=== PATIENT | male | born 1945 | race Caucasian/White ===

== ENCOUNTER 2017-01-05 09:23 | Inpatient (IN) | payer OTHER ==
[~2017-01-05] VITALS: Ht 177.8 cm; Wt 90.0 kg
[~2017-01-05 09:23] MED LIST: ASPIR 8181 M1 PO; ATORVASTATIN CA80 MG PO; CARVEDILOL25 MG PO; FORADIL AEROLI12 MCG IH; ISORDIL,SORBITR40 M3 PO; LOSARTAN POTAS100 MG PO; METFORMIN HCL500 MG PO; NITROGLYCERIN0.4 MG SL; PROVENTIL HFA6.7 GM IH; SPIRIVA RESPIMAT4 GM IH; ZOLPIDEM TARTRAT5 MG PO
[2017-01-05 10:05] LABS: EOSINOPHIL (%) 0 % (0-5); HEMATOCRIT 38.2 % (38.0-50.0); IMMATURE GRANULOCYTE (%) 0.7 % (0.0-0.7); IMMATURE GRANULOCYTE COUNT 0.1 K/uL; INSTRUMENT ABS NEUTROPHIL CT 10.5 K/uL; LYMPHOCYTE COUNT 0.5 K/uL (1.0-2.8); MCH 31.7 PG (29.0-34.0); MCHC 34.6 G/DL (30.0-36.0); MCV 91.6 FL (86-99); MEAN PLAT.VOLUME 9.6 uM^3 (9.0-12.4); MONOCYTE (%) 4.1 % (3-12); MONOCYTE COUNT 0.5 K/uL (0-0.8); NEUTROPHIL (%) 90.4 % (45-76); NEUTROPHIL COUNT 10.5 K/uL (1.8-6.4); PLATELET COUNT 143 K/uL (156-360); RBC DIS.WIDTH-CV 12.4 % (11.8-14.6); RED BLOOD COUNT 4.17 M/uL (4.00-5.50); WHITE BLOOD COUNT 11.6 K/uL (4.1-10.2)
[2017-01-05 10:07] LABS: INTER. NORMALIZED RATIO 4.1; PROTHROMBIN TIME 47.3 SEC (10.2-12.9)
[2017-01-05 10:10] LABS: PTT 42.7 SEC (25-37)
[2017-01-05 10:11] LABS: CHLORIDE 100 mEq/L (99-109); POTASSIUM 3.9 mEq/L (3.7-5.4); SODIUM 133 mEq/L (136-147)
[2017-01-05 10:12] LABS: GLUCOSE 175 mg/dL (70-99)
[2017-01-05 10:14] LABS: ANION GAP 9 MEQ/L (2-14)
[2017-01-05 10:16] LABS: GFR ESTIMATE (CALCULATED) > 59 mL/min/
[2017-01-05 10:17] LABS: UREA NITROGEN (BUN) 14 mg/dL (9-23)
[2017-01-05 10:31] LABS: TROP-I INTERPRETATION INDETERMINATE; TROPONIN-I 0.44 ng/mL (0.0-0.30)
[2017-01-05] MEDS ORDERED: LIPITOR80 MG PO (13:18)
[2017-01-05] MEDS ORDERED: SYMBICORT60 INHALAT IH (13:18)
[2017-01-05] MEDS ORDERED: DIGITEK125 MC2 PO (13:19)
[2017-01-05] MEDS ORDERED: PLAVIX75 MG PO (13:19)
[2017-01-05] MEDS ORDERED: METOPROLOL TART50 MG PO (13:20)
[2017-01-05] MEDS ORDERED: ONCE DAILY1 EACH PO (13:20)
[2017-01-05] MEDS ORDERED: LASIX40 MG PO (13:20)
[2017-01-05] MEDS ORDERED: B-1100 MG PO (13:21)
[2017-01-05] MEDS ORDERED: SPIRIVA18 MCG IH (13:21)
[2017-01-05] MEDS ORDERED: WARFARIN SODIUM5 MG PO (13:22)
[2017-01-05] MEDS ORDERED: COUMADIN5 MG PO (13:23)
[2017-01-05] MEDS ORDERED: GLUCOPHAGE500 MG PO (13:24)
[2017-01-05 14:28] LABS: HDL CHOLESTEROL 25 MG/DL (Desirable>=40); LDL CHOLESTEROL 38 mg/dL (Desirable<100); NON-HDL CHOLESTEROL 50 mg/dL (Desirable<160); SAMPLE HEMOLYSIS CHECK 0; SAMPLE ICTERIC CHECK 0; SAMPLE LIPEMIA CHECK 0; TOTAL CHOLESTEROL 75 mg/dL (Desirable<200); TRIGLYCERIDES 58 MG/DL (Normal: <150)
[2017-01-05 17:57] LABS: POINT-OF-CARE METER ID UU13113702
[2017-01-05 18:36] VITALS: BP 124/78
[2017-01-06 08:33] LABS: Estimated Average Glucose 143 mg/dL (70-123); HEMOGLOBIN A1c (GLYCOHEMOGLOB) 6.6 % HGB (Below 5.7)
== END 2017-01-05 15:52 | disposition short-term general hospital (02) | DRG 69 ==
LOC: EME 09:23 → EDOF 12:13 → ENRESERV 12:30 → CANRESERV 12:43 → EDOF 15:52
PROVIDERS: Emergency Medicine; Internal Medicine
DX: G45.8 Other transient cerebral ischemic attacks and related syndromes (principal); F05 Delirium due to known physiological condition; J90 Pleural effusion, not elsewhere classified; I25.10 Atherosclerotic heart disease of native coronary artery without angina pectoris; W06.XXXA Fall from bed, initial encounter; I10 Essential (primary) hypertension; I73.9 Peripheral vascular disease, unspecified; J44.9 Chronic obstructive pulmonary disease, unspecified; F17.210 Nicotine dependence, cigarettes, uncomplicated; E78.5 Hyperlipidemia, unspecified; E11.9 Type 2 diabetes mellitus without complications; S00.81XA Abrasion of other part of head, initial encounter; I65.23 Occlusion and stenosis of bilateral carotid arteries; R78.89 Finding of other specified substances, not normally found in blood; Z95.5 Presence of coronary angioplasty implant and graft; Z95.2 Presence of prosthetic heart valve; I25.2 Old myocardial infarction; Z79.84 Long term (current) use of oral hypoglycemic drugs; Z79.82 Long term (current) use of aspirin; Z79.51 Long term (current) use of inhaled steroids; Y93.84 Activity, sleeping; Y92.013 Bedroom of single-family (private) house as the place of occurrence of the external cause; Z91.81 History of falling; Z95.1 Presence of aortocoronary bypass graft
CPT/HCPCS: 70450; 71010; 80048; 80048 91; 80061; 82948; 83036; 84484; 85025; 85025 91; 85610; 85730; 87040; 87077; 87186; 87801; 93005; 93880; 99281; 99285; J0696; J3370; J7030; J7050

== ENCOUNTER 2017-01-22 22:12 | Emergency (ER) | payer OTHER ==
[~2017-01-22] VITALS: Ht 177.8 cm; Wt 93.4 kg
[~2017-01-22 22:12] MED LIST changes: +B-1100 MG PO; +COUMADIN5 MG PO; +DIGITEK125 MC2 PO; +GLUCOPHAGE500 MG PO; +LASIX40 MG PO; +LIPITOR80 MG PO; +METOPROLOL TART50 MG PO; +ONCE DAILY1 EACH PO; +PLAVIX75 MG PO; +SPIRIVA18 MCG IH; +SYMBICORT60 INHALAT IH; +WARFARIN SODIUM5 MG PO
[2017-01-22 23:50] LABS: BASOPHIL COUNT 0.1 K/uL (0-0.1); EOSINOPHIL COUNT 0.2 K/uL (0-0.3); HEMATOCRIT 33.5 % (38.0-50.0); IMMATURE GRANULOCYTE (%) 0.7 % (0.0-0.7); INSTRUMENT ABS NEUTROPHIL CT 3.8 K/uL; LYMPHOCYTE COUNT 1.1 K/uL (1.0-2.8); MCH 31.2 PG (29.0-34.0); MCHC 35.2 G/DL (30.0-36.0); MCV 88.6 FL (86-99); MEAN PLAT.VOLUME 8.8 uM^3 (9.0-12.4); MONOCYTE (%) 9.9 % (3-12); MONOCYTE COUNT 0.6 K/uL (0-0.8); NEUTROPHIL (%) 65.7 % (45-76); NEUTROPHIL COUNT 3.8 K/uL (1.8-6.4); RBC DIS.WIDTH-CV 12.2 % (11.8-14.6); RED BLOOD COUNT 3.78 M/uL (4.00-5.50); WHITE BLOOD COUNT 5.7 K/uL (4.1-10.2)
[2017-01-22 23:51] LABS: PLATELET COUNT 274 K/uL (156-360)
[2017-01-23] LABS: PTT 41.5 SEC (25-37)
[2017-01-23 00:02] LABS: CHLORIDE 94 mEq/L (99-109); POTASSIUM 3.2 mEq/L (3.7-5.4); SODIUM 133 mEq/L (136-147)
[2017-01-23 00:04] LABS: GLUCOSE 112 mg/dL (70-99)
[2017-01-23 00:06] LABS: ANION GAP 10 MEQ/L (2-14)
[2017-01-23 00:08] LABS: GFR ESTIMATE (CALCULATED) > 59 mL/min/
[2017-01-23 00:09] LABS: INTER. NORMALIZED RATIO 2.4; PROTHROMBIN TIME 27.9 SEC (10.2-12.9); UREA NITROGEN (BUN) 15 mg/dL (9-23)
[2017-01-23 00:36] LABS: ADD MIUA? YES; BILIRUBIN NEGATIVE; BLOOD MODERATE; COLOR AMBER ((YELLOW)); GLUCOSE (STRIP) NEGATIVE; KETONES NEGATIVE; LEUKOCYTES NEGATIVE; NITRITE NEGATIVE; PROTEIN (STRIP) 100; SPECIFIC GRAVITY 1.021 (1.000-1.030)
[2017-01-23 00:53] LABS: BACTERIA RARE /HPF; BUDDING YEAST 2+; EPITHELIAL CELLS RARE /HPF; MUCUS TRACE /LPF; RED BLOOD CELLS TNTC /HPF (0-5); UCUL ADDED? YES; WHITE BLOOD CELLS 0-5 /HPF (0-5)
[2017-01-23 02:37] LABS: TROP-I INTERPRETATION NEGATIVE; TROPONIN-I 0.06 ng/mL (0.0-0.30)
[2017-01-23 03:38] LABS: TROP-I INTERPRETATION NEGATIVE; TROPONIN-I 0.09 ng/mL (0.0-0.30)
[2017-01-23 07:04] VITALS: BP 144/98
== END 2017-01-23 07:06 ==
LOC: EME → EDBD 22:12 → EME 01-23 07:06
PROVIDERS: Emergency Medicine
PROC: 0HQDXZZ Repair Right Lower Arm Skin, External Approach (ICD-10-PCS; principal; 2017-01-22)
DX: S51.811A Laceration without foreign body of right forearm, initial encounter (principal); R31.9 Hematuria, unspecified; Z79.01 Long term (current) use of anticoagulants; I69.851 Hemiplegia and hemiparesis following other cerebrovascular disease affecting right dominant side; E11.9 Type 2 diabetes mellitus without complications; Z79.84 Long term (current) use of oral hypoglycemic drugs; X58.XXXA Exposure to other specified factors, initial encounter; I25.2 Old myocardial infarction; I10 Essential (primary) hypertension; E78.5 Hyperlipidemia, unspecified; J44.9 Chronic obstructive pulmonary disease, unspecified; Z95.5 Presence of coronary angioplasty implant and graft; F17.200 Nicotine dependence, unspecified, uncomplicated
CPT/HCPCS: 71020; 73060; 80048; 81003; 84484; 85025; 85610; 85730; 87086; 87106; 93005; 99281; 99283; J3010; J3370

== ENCOUNTER 2017-01-29 16:06 | Inpatient (IN) | payer OTHER ==
[~2017-01-29] VITALS: Ht 175.3 cm; Wt 84.2 kg
[~2017-01-29 16:06] MED LIST changes: -COUMADIN5 MG PO; +COUMADIN6 MG PO
[2017-01-29 16:53] LABS: HEMATOCRIT 20.2 % (38.0-50.0); MCH 31.7 PG (29.0-34.0); MCHC 34.7 G/DL (30.0-36.0); MCV 91.4 FL (86-99); RBC DIS.WIDTH-CV 13.3 % (11.8-14.6); RBC DIS.WIDTH-SD 43.4 % (39-53); RED BLOOD COUNT 2.21 M/uL (4.00-5.50); WHITE BLOOD COUNT 5.4 K/uL (4.1-10.2)
[2017-01-29 16:56] LABS: INTER. NORMALIZED RATIO 1.6; PROTHROMBIN TIME 18.4 SEC (10.2-12.9)
[2017-01-29 16:59] LABS: CHLORIDE 99 mEq/L (99-109); POTASSIUM 3.5 mEq/L (3.7-5.4); PTT 32.1 SEC (25-37); SODIUM 137 mEq/L (136-147)
[2017-01-29 17:01] LABS: GLUCOSE 108 mg/dL (70-99)
[2017-01-29 17:03] LABS: ANION GAP 10 MEQ/L (2-14)
[2017-01-29 17:05] LABS: GFR ESTIMATE (CALCULATED) 43 mL/min/
[2017-01-29 17:06] LABS: UREA NITROGEN (BUN) 27 mg/dL (9-23)
[2017-01-29 17:48] LABS: EOSINOPHIL (%) 2.9 % (0-5); EOSINOPHIL COUNT 0.2 K/uL (0-0.3); IMMATURE GRANULOCYTE (%) 0.4 % (0.0-0.7); INSTRUMENT ABS NEUTROPHIL CT 3.7 K/uL; MONOCYTE (%) 9.4 % (3-12); MONOCYTE COUNT 0.5 K/uL (0-0.8); NEUTROPHIL (%) 68.5 % (45-76); NEUTROPHIL COUNT 3.7 K/uL (1.8-6.4); PLAT.SUFFICIENCY ADEQUATE; PLATELET COUNT 189 K/uL (156-360)
[2017-01-29] MEDS ORDERED: NOVOLOG PE100 UNITS/ SC (18:40)
[2017-01-29] MEDS ORDERED: ALBUTEROL2.5 MG/3 M IH (18:40)
[2017-01-29] MEDS ORDERED: VANCOMYCIN1 GM/250 M IV (18:41)
[2017-01-29] MEDS ORDERED: ASPIRIN81 M2 PO (18:42)
[2017-01-29] MEDS ORDERED: DIFLUCAN150 MG PO (18:44)
[2017-01-29] MEDS ORDERED: COLACE100 MG PO (18:45)
[2017-01-29] MEDS ORDERED: FAMOTIDINE20 MG PO (18:45)
[2017-01-29] MEDS ORDERED: KLOR-CON M2020 MEQ PO (18:46)
[2017-01-29] MEDS ORDERED: RIFADIN300 MG PO (18:47)
[2017-01-29] MEDS ORDERED: TYLENOL REGULA325 MG PO (18:49)
[2017-01-29] MEDS ORDERED: PHILLIPS'400 MG/5 M PO (18:50)
[2017-01-29] MEDS ORDERED: DULCOLAX10 MG PR (18:50)
[2017-01-29] MEDS ORDERED: SILVADENE20 GM TP (18:51)
[2017-01-29] MEDS ORDERED: MIRALAX17 GM PO (18:51)
[2017-01-29] MEDS ORDERED: TRIAMCINOLONE A15 GM TP (18:52)
[2017-01-29 19:40] VITALS: BP 126/67
[2017-01-29 21:41] VITALS: BP 126/67
[2017-01-29 22:03] VITALS: BP 133/77
[2017-01-30] VITALS (13 sets, daily range): BP systolic 109–153; BP diastolic 58–84
[2017-01-30 06:47] LABS: POINT-OF-CARE METER ID UU13113725
[2017-01-30 07:18] LABS: HEMATOCRIT 29.9 % (38.0-50.0); MCH 31.2 PG (29.0-34.0); MCHC 34.4 G/DL (30.0-36.0); MCV 90.6 FL (86-99); PLATELET COUNT 180 K/uL (156-360); RBC DIS.WIDTH-CV 13.2 % (11.8-14.6); RBC DIS.WIDTH-SD 43.2 % (39-53); WHITE BLOOD COUNT 4.6 K/uL (4.1-10.2)
[2017-01-30 07:35] LABS: ANION GAP 10 MEQ/L (2-14); CHLORIDE 98 MEQ/L (99-109); GFR ESTIMATE (CALCULATED) 43 mL/min/; GLUCOSE 98 mg/dL (70-99); POTASSIUM 3.2 MEQ/L (3.7-5.4); SAMPLE HEMOLYSIS CHECK 0; SAMPLE ICTERIC CHECK 0; SAMPLE LIPEMIA CHECK 0; SODIUM 139 MEQ/L (136-147); UREA NITROGEN (BUN) 23 mg/dL (9-23)
[2017-01-30 22:30] LABS: POINT-OF-CARE METER ID UU13113725
[2017-01-31 00:53] VITALS: BP 141/72
[2017-01-31 06:23] LABS: HEMATOCRIT 30.6 % (38.0-50.0); MCH 31.2 PG (29.0-34.0); MCHC 34.3 G/DL (30.0-36.0); MCV 90.8 FL (86-99); MEAN PLAT.VOLUME 8.9 uM^3 (9.0-12.4); PLATELET COUNT 173 K/uL (156-360); RBC DIS.WIDTH-CV 13.2 % (11.8-14.6); RBC DIS.WIDTH-SD 43.1 % (39-53); RED BLOOD COUNT 3.37 M/uL (4.00-5.50); WHITE BLOOD COUNT 5.1 K/uL (4.1-10.2)
[2017-01-31 06:28] LABS: INTER. NORMALIZED RATIO 1.4; PROTHROMBIN TIME 15.3 SEC (10.2-12.9)
[2017-01-31 06:57] LABS: ALKALINE PHOSPHATASE 65 IU/L (3-129); ANION GAP 10 MEQ/L (2-14); CHLORIDE 99 MEQ/L (99-109); DIRECT BILIRUBIN 0.4 mg/dL (0.0-0.3); GFR ESTIMATE (CALCULATED) 38 mL/min/; GLUCOSE 103 mg/dL (70-99); POTASSIUM 3.3 MEQ/L (3.7-5.4); SAMPLE HEMOLYSIS CHECK 0; SAMPLE ICTERIC CHECK 0; SAMPLE LIPEMIA CHECK 0; SODIUM 139 MEQ/L (136-147); TOTAL BILIRUBIN 0.8 MG/DL (0.0-1.0); UREA NITROGEN (BUN) 18 mg/dL (9-23)
[2017-01-31 07:37] VITALS: BP 140/79
[2017-01-31 11:13] LABS: POINT-OF-CARE METER ID UU13113725
[2017-01-31 11:31] VITALS: BP 119/77
[2017-01-31 15:21] VITALS: BP 133/86
[2017-01-31 19:28] VITALS: BP 127/65
[2017-01-31 21:32] LABS: POINT-OF-CARE METER ID UU13113725
[2017-01-31 23:40] VITALS: BP 138/85
[2017-02-01 03:29] VITALS: BP 107/53
[2017-02-01 07:27] VITALS: BP 134/75
[2017-02-01 11:00] VITALS: BP 133/83
[2017-02-01 11:52] LABS: POINT-OF-CARE METER ID UU13113725
[2017-02-01 18:41] VITALS: BP 136/74
[2017-02-01] MEDS ORDERED: PANTOPRAZOLE SO40 MG PO (19:07)
[2017-02-01] MEDS ORDERED: LORAZEPAM0.5 MG PO (19:08)
[2017-02-01 19:32] VITALS: BP 107/68
[2017-02-01 20:27] LABS: POINT-OF-CARE METER ID UU13113725
[2017-02-01 23:13] VITALS: BP 134/78
[2017-02-02 02:56] VITALS: BP 141/78
[2017-02-02 06:10] LABS: POINT-OF-CARE METER ID UU13113725
[2017-02-02 06:41] LABS: HEMATOCRIT 32.8 % (38.0-50.0); MCH 31.1 PG (29.0-34.0); MCHC 33.8 G/DL (30.0-36.0); MCV 91.9 FL (86-99); MEAN PLAT.VOLUME 9.2 uM^3 (9.0-12.4); PLATELET COUNT 210 K/uL (156-360); RBC DIS.WIDTH-CV 13.5 % (11.8-14.6); RED BLOOD COUNT 3.57 M/uL (4.00-5.50); WHITE BLOOD COUNT 4.6 K/uL (4.1-10.2)
[2017-02-02 07:06] LABS: ANION GAP 8 MEQ/L (2-14); CHLORIDE 100 MEQ/L (99-109); GFR ESTIMATE (CALCULATED) 43 mL/min/; GLUCOSE 107 mg/dL (70-99); POTASSIUM 3.6 MEQ/L (3.7-5.4); SAMPLE HEMOLYSIS CHECK 0; SAMPLE ICTERIC CHECK 0; SAMPLE LIPEMIA CHECK 0; SODIUM 138 MEQ/L (136-147); UREA NITROGEN (BUN) 19 mg/dL (9-23)
[2017-02-02 07:20] VITALS: BP 144/84
== END 2017-02-02 12:30 | DRG 377 ==
LOC: EME 16:06 → EDOF 17:57 → 5EAST 17:57 → ENRESERV 19:05 → 5EAST 20:23 → ENPENDDIS 02-02 → EDPENDDISTM 02-02 11:30 → 5EAST 02-02 12:30
PROVIDERS: Emergency Medicine; Family Medicine; Internal Medicine; Internal Medicine Gastroenterology
PROC: 30233N1 Transfusion of Nonautologous Red Blood Cells into Peripheral Vein, Percutaneous Approach (ICD-10-PCS; principal; 2017-01-29)
PROC: 0DJ08ZZ Inspection of Upper Intestinal Tract, Via Natural or Artificial Opening Endoscopic (ICD-10-PCS; 2017-01-31)
DX: K92.1 Melena (principal); D62 Acute posthemorrhagic anemia; T45.515A Adverse effect of anticoagulants, initial encounter; T82.6XXA Infection and inflammatory reaction due to cardiac valve prosthesis, initial encounter; Y83.1 Surgical operation with implant of artificial internal device as the cause of abnormal reaction of the patient, or of later complication, without mention of misadventure at the time of the procedure; I33.0 Acute and subacute infective endocarditis; B95.7 Other staphylococcus as the cause of diseases classified elsewhere; J44.9 Chronic obstructive pulmonary disease, unspecified; E11.9 Type 2 diabetes mellitus without complications; I25.10 Atherosclerotic heart disease of native coronary artery without angina pectoris; E78.5 Hyperlipidemia, unspecified; E87.6 Hypokalemia; F41.9 Anxiety disorder, unspecified; I11.0 Hypertensive heart disease with heart failure; I50.9 Heart failure, unspecified; I48.91 Unspecified atrial fibrillation; I48.92 Unspecified atrial flutter; K29.70 Gastritis, unspecified, without bleeding; K29.80 Duodenitis without bleeding; M19.90 Unspecified osteoarthritis, unspecified site; N28.9 Disorder of kidney and ureter, unspecified; F17.200 Nicotine dependence, unspecified, uncomplicated; H90.5 Unspecified sensorineural hearing loss; I69.351 Hemiplegia and hemiparesis following cerebral infarction affecting right dominant side; Z79.01 Long term (current) use of anticoagulants; I25.2 Old myocardial infarction; Z95.1 Presence of aortocoronary bypass graft; Z95.3 Presence of xenogenic heart valve; Z95.5 Presence of coronary angioplasty implant and graft
CPT/HCPCS: 71010; 71275; 80048; 80076; 80202; 81003; 82948; 85025 91; 85027; 85610; 85730; 86850; 86900; 86901; 86920; 93005; 93306; 94640; 94640 76; 94799; 99281; 99285; C9113; J1815; J1940; J2250; J3370; J7030; J7050; P9016; S0164

== ENCOUNTER 2017-02-03 11:48 | Emergency (ER) | payer OTHER ==
[~2017-02-03] VITALS: Ht 172.7 cm; Wt 81.4 kg
[~2017-02-03 11:48] MED LIST changes: +ALBUTEROL2.5 MG/3 M IH; +ASPIRIN81 M2 PO; +COLACE100 MG PO; +DIFLUCAN150 MG PO; +DULCOLAX10 MG PR; +FAMOTIDINE20 MG PO; +KLOR-CON M2020 MEQ PO; +LORAZEPAM0.5 MG PO; +MIRALAX17 GM PO; +NOVOLOG PE100 UNITS/ SC; +PANTOPRAZOLE SO40 MG PO; +PHILLIPS'400 MG/5 M PO; +RIFADIN300 MG PO; +SILVADENE20 GM TP; +TRIAMCINOLONE A15 GM TP; +TYLENOL REGULA325 MG PO; +VANCOMYCIN1 GM/250 M IV
[2017-02-03 14:44] VITALS: BP 122/95
== END 2017-02-03 14:48 ==
LOC: EME 11:48
DX: T82.594A Other mechanical complication of infusion catheter, initial encounter (principal); R05 Cough; Z45.2 Encounter for adjustment and management of vascular access device; Z95.2 Presence of prosthetic heart valve; J44.9 Chronic obstructive pulmonary disease, unspecified; I10 Essential (primary) hypertension; E78.5 Hyperlipidemia, unspecified; E11.9 Type 2 diabetes mellitus without complications; Z79.4 Long term (current) use of insulin; Z95.1 Presence of aortocoronary bypass graft; Z95.5 Presence of coronary angioplasty implant and graft; Z79.02 Long term (current) use of antithrombotics/antiplatelets; Z79.82 Long term (current) use of aspirin; Z87.891 Personal history of nicotine dependence
CPT/HCPCS: 80202; 99281; 99284; J3370

== ENCOUNTER 2017-07-02 12:44 | Inpatient (IN) | payer OTHER ==
[~2017-07-02] VITALS: Ht 180.3 cm; Wt 89.6 kg
[2017-07-02 13:01] LABS: BASOPHIL (%) 0.8 % (0-1); BASOPHIL COUNT 0.1 K/uL (0-0.1); EOSINOPHIL (%) 1.8 % (0-5); EOSINOPHIL COUNT 0.1 K/uL (0-0.3); HEMATOCRIT 40.2 % (38.0-50.0); HEMOGLOBIN 12.9 G/DL (12.5-16.6); IMMATURE GRANULOCYTE (%) 0.6 % (0.0-0.7); LYMPHOCYTE (%) 49.4 % (15-42); LYMPHOCYTE COUNT 3.6 K/uL (1.0-2.8); MCH 31.5 PG (29.0-34.0); MCHC 32.1 G/DL (30.0-36.0); MCV 98.3 FL (86-99); MONOCYTE (%) 6.5 % (3-12); MONOCYTE COUNT 0.5 K/uL (0-0.8); NEUTROPHIL (%) 40.9 % (45-76); PLATELET COUNT 259 K/uL (156-360); RBC DIS.WIDTH-CV 14.3 % (11.8-14.6); RBC DIS.WIDTH-SD 51.7 % (39-53); RED BLOOD COUNT 4.09 M/uL (4.00-5.50); WHITE BLOOD COUNT 7.2 K/uL (4.1-10.2)
[2017-07-02 13:06] LABS: INTER. NORMALIZED RATIO 1.9
[2017-07-02 13:07] LABS: AMYLASE 46 IU/L (1-118); CHLORIDE 105 mEq/L (99-109); POTASSIUM 4.6 mEq/L (3.7-5.4); SODIUM 137 mEq/L (136-147)
[2017-07-02 13:09] LABS: GLUCOSE 194 mg/dL (70-99); PTT 31.1 SEC (25-37)
[2017-07-02 13:12] LABS: CREATININE 1.6 mg/dL (0.6-1.3); GFR ESTIMATE (CALCULATED) 46 mL/min/ (58.99-99999); SERUM ETHYL ALCOHOL < 10 mg/dL
[2017-07-02 13:13] LABS: UREA NITROGEN (BUN) 15 mg/dL (9-23)
[2017-07-02 13:15] LABS: LIPASE 38 U/L (1.0-51.0)
[2017-07-02 13:21] LABS: TROP-I INTERPRETATION NEGATIVE; TROPONIN-I 0.02 ng/mL (0.0-0.30)
[2017-07-02] MEDS ORDERED: VIBRAMYCIN100 MG PO (14:31)
[2017-07-02] MEDS ORDERED: COUMADIN5 MG PO ×2 (14:32→14:33)
[2017-07-02] MEDS ORDERED: VITAMIN D31000 UNI2 PO (14:32)
[2017-07-02] MEDS ORDERED: NEURONTIN300 MG PO (14:33)
[2017-07-02] MEDS ORDERED: B-121000 MC2 PO (14:33)
[2017-07-02 19:23] VITALS: BP 122/71
[2017-07-02 23:23] VITALS: BP 109/67
[2017-07-03 03:40] VITALS: BP 112/64
[2017-07-03 06:55] LABS: INTER. NORMALIZED RATIO 1.9
[2017-07-03 07:53] VITALS: BP 104/72
[2017-07-03 12:16] VITALS: BP 120/76
[2017-07-03 16:27] VITALS: BP 101/59
[2017-07-03 20:05] VITALS: BP 106/63
[2017-07-04 00:22] VITALS: BP 123/71
[2017-07-04 04:08] VITALS: BP 114/58
[2017-07-04 07:22] LABS: INTER. NORMALIZED RATIO 1.9
[2017-07-04 07:34] LABS: BASOPHIL (%) 0.8 % (0-1); EOSINOPHIL (%) 2.9 % (0-5); EOSINOPHIL COUNT 0.1 K/uL (0-0.3); HEMATOCRIT 37.7 % (38.0-50.0); HEMOGLOBIN 12.3 G/DL (12.5-16.6); IMMATURE GRANULOCYTE (%) 0.2 % (0.0-0.7); LYMPHOCYTE (%) 24.8 % (15-42); LYMPHOCYTE COUNT 1.2 K/uL (1.0-2.8); MCH 31.8 PG (29.0-34.0); MCHC 32.6 G/DL (30.0-36.0); MCV 97.4 FL (86-99); MONOCYTE (%) 7.2 % (3-12); MONOCYTE COUNT 0.4 K/uL (0-0.8); NEUTROPHIL (%) 64.1 % (45-76); NEUTROPHIL COUNT 3.1 K/uL (1.8-6.4); PLATELET COUNT 196 K/uL (156-360); RBC DIS.WIDTH-CV 14.6 % (11.8-14.6); RBC DIS.WIDTH-SD 52.4 % (39-53); RED BLOOD COUNT 3.87 M/uL (4.00-5.50); WHITE BLOOD COUNT 4.9 K/uL (4.1-10.2)
[2017-07-04 07:37] LABS: ALBUMIN 3.7 G/DL (3.2-4.8); ALKALINE PHOSPHATASE 82 IU/L (3-129); ALT (GPT) 13 IU/L (3-49); AST (GOT) 30 IU/L (2-34); CHLORIDE 107 MEQ/L (99-109); POTASSIUM 4.2 MEQ/L (3.7-5.4); SODIUM 140 MEQ/L (136-147); TOTAL BILIRUBIN 0.5 MG/DL (0.0-1.0); TOTAL PROTEIN 5.7 G/DL (6.4-8.3); UREA NITROGEN (BUN) 11 mg/dL (9-23)
[2017-07-04 07:40] LABS: GFR ESTIMATE (CALCULATED) > 59 mL/min/ (58.99-99999); GLUCOSE 90 mg/dL (70-99)
[2017-07-04 08:13] VITALS: BP 111/65
[2017-07-04 11:49] VITALS: BP 104/58
[2017-07-04 15:54] VITALS: BP 111/69
[2017-07-04 20:16] VITALS: BP 113/70
[2017-07-05 00:19] VITALS: BP 113/70
[2017-07-05 04:20] VITALS: BP 100/54
[2017-07-05 08:36] VITALS: BP 112/66
[2017-07-05 12:16] VITALS: BP 121/60
[2017-07-05] MEDS ORDERED: COUMADIN1 MG PO (13:23)
[2017-07-05 16:46] VITALS: BP 136/66
== END 2017-07-05 18:07 | DRG 101 ==
LOC: EME → EDBD 12:44 → EDOF 14:55 → 5EAST 14:55 → ENRESERV 15:01 → 5EAST 18:00 → ENPENDDIS 07-05 → 5EAST 07-05 18:07
PROVIDERS: Emergency Medicine Emergency Medical Services; Family Medicine; Internal Medicine
DX: G40.909 Epilepsy, unspecified, not intractable, without status epilepticus (principal); E87.2 Acidosis; I11.0 Hypertensive heart disease with heart failure; I50.9 Heart failure, unspecified; I48.2 Chronic atrial fibrillation; I48.92 Unspecified atrial flutter; J44.9 Chronic obstructive pulmonary disease, unspecified; I25.10 Atherosclerotic heart disease of native coronary artery without angina pectoris; E78.5 Hyperlipidemia, unspecified; E11.9 Type 2 diabetes mellitus without complications; M19.90 Unspecified osteoarthritis, unspecified site; I69.351 Hemiplegia and hemiparesis following cerebral infarction affecting right dominant side; I25.2 Old myocardial infarction; Z79.01 Long term (current) use of anticoagulants; Z95.1 Presence of aortocoronary bypass graft; Z95.3 Presence of xenogenic heart valve; Z95.5 Presence of coronary angioplasty implant and graft; Z87.891 Personal history of nicotine dependence; Z91.81 History of falling
CPT/HCPCS: 70450; 70496; 70498; 71045; 71046; 80048; 80053; 81003; 82150; 82948; 83690; 83880; 84484; 85025; 85610; 85730; 86850; 86900; 86901; 92610 GN; 93005; 94799; 95819; 99281; 99285; G0480; J2060